=== PATIENT | female | born 1965 | race Caucasian/White ===

== ENCOUNTER 2025-02-05 10:36 | Outpatient (CLI) | payer MEDICAID, SELFPAY ==
[2025-02-05 11:46] LABS: Free T4 (Free Thyroxine) 1.18 ng/dl (0.78-2.19)
[2025-02-05 12:02] LABS: Thyroid Stimulating Hormone 2.20 uIU/mL (0.465-4.68)
== END 2025-02-05 23:59 | disposition home or self-care (01) ==
LOC: LAB 10:37
PROVIDERS: PCP Nurse Practitioner Family; Visit Provider Student in an Organized Health Care Education/Training Program
DX: E04.1 Nontoxic single thyroid nodule (principal)
CPT/HCPCS: 36415; 84439; 84443